=== PATIENT | male | born 1970 | race Caucasian/White ===

== ENCOUNTER 2022-02-28 20:51 | Emergency (ER) | payer MEDICARE, OTHER ==
[~2022-02-28] VITALS: Ht 182.9 cm; Wt 122.5 kg
[2022-02-28 21:26] LABS: APPEARANCE,URINE Clear (CLEAR); BILIRUBIN,URINE Negative (NEGATIVE); COLOR,URINE Yellow (YELLOW); GLUCOSE, URINE (UA) Negative (NEGATIVE); KETONES,URINE Negative (NEGATIVE); LEUKOCYTE ESTERASE ,URINE Small (NEGATIVE); NITRATE,URINE Negative (NEGATIVE); OCCULT BLOOD,URINE Negative (NEGATIVE); PH,URINE 5.5 (5.0-8.0); PROTEIN,URINE Negative (NEGATIVE); UROBILINOGEN,URINE 0.2 mg/dL (0.2-1.0)
[2022-02-28] MEDS ORDERED: ZIPRASIDONE MESYLATE 20 MG/VIAL IM SCH (21:30)
[2022-02-28 21:35] LABS: AMPHET/METH SCREEN,URINE NEGATIVE (NEGATIVE); BARBITURATE SCREEN, URINE NEGATIVE (NEGATIVE); BENZODIAZEPINES SCREEN,URINE NEGATIVE (NEGATIVE); CANNABINOID SCREEN,URINE NEGATIVE (NEGATIVE); COCAINE SCREEN,URINE NEGATIVE (NEGATIVE); OPIATE SCREEN,URINE NEGATIVE (NEGATIVE); PHENCYCLIDINE SCREEN,URINE NEGATIVE (NEGATIVE)
[2022-02-28 21:37] LABS: RBC,URINE 0-1 /HPF (0-1)
[2022-02-28 21:38] LABS: BACTERIA,URINE Rare /HPF (None Seen); SQUAMOUS EPITHELIAL CELL,UR Rare /HPF (0-2)
[2022-02-28] MEDS ORDERED: ZIPRASIDONE MESYLATE 20 MG/VIAL IM ONE (21:46)
[2022-02-28 21:47] LABS: BASOPHILS % (AUTO) 0.6 % (0.0-5.0); EOSINOPHILS % (AUTO) 2.7 % (0.0-8.0); HEMATOCRIT 49.8 % (42-54); LYMPHOCYTES % (AUTO) 33.1 % (21.0-51.0); MEAN CORPUSCULAR HEMOGLOBIN 31.3 pg (27.0-33.0); MEAN CORPUSCULAR HGB CONC 34.1 g/dL (32.0-36.0); MEAN CORPUSCULAR VOLUME 91.7 fL (79-99); NEUTROPHILS % (AUTO) 55.3 % (40.0-77.0); PLATELET COUNT (AUTO) 241 K/uL (130-400); RED BLOOD CELL COUNT(AUTO) 5.43 MIL/uL (4.50-6.20); RED CELL DISTRIBUTION WIDTH 12.4 % (11.0-15.5); WHITE BLOOD COUNT (AUTO) 11.5 K/uL (4.8-10.8)
[2022-02-28 21:58] LABS: CARBON DIOXIDE 23 mmol/L (21-32); CHLORIDE 101 mmol/L (101-111); CREATININE 0.9 mg/dL (0.5-1.5); GLOMERULAR FILTR. RATE CALC 95 mL/min (>60); GLUCOSE,RANDOM 94 mg/dL (70-105); POTASSIUM 3.9 mmol/L (3.5-5.1); SODIUM SERUM 135 mmol/L (136-145); UREA NITROGEN, BLOOD 8 mg/dL (7-18)
[2022-02-28 22:03] LABS: ALANINE AMINOTRANSFERASE 88 U/L (12-78); ALBUMIN 3.7 g/dL (3.5-5.0); ALCOHOL, BLOOD 191 mg/dL (0-10); ASPARTATE AMINOTRANSFERASE 67 U/L (10-37); BILIRUBIN,TOTAL 0.3 mg/dL (0.2-1.0); SALICYLATE 3.9 mg/dL (2.8-20.0); TOTAL PROTEIN, SERUM 7.2 g/dL (6.0-8.3)
[2022-02-28 22:07] LABS: ACETAMINOPHEN < 1 mcg/mL (10-29)
[2022-03-01 05:00] VITALS: BP 156/81
== END 2022-03-01 07:44 | disposition left against medical advice (07) ==
LOC: EDH 20:51
DX: R45.851 Suicidal ideations (principal); F10.129 Alcohol abuse with intoxication, unspecified; F20.9 Schizophrenia, unspecified; F31.9 Bipolar disorder, unspecified; I10 Essential (primary) hypertension; I25.10 Atherosclerotic heart disease of native coronary artery without angina pectoris; Z20.822 Contact with and (suspected) exposure to COVID-19
CPT/HCPCS: 36415 ×2; 80053; 80305; 81001; 85025; 87635; 96372; 99285; C9803; G0481; J3486

== ENCOUNTER 2022-08-24 06:32 | Emergency (ER) | payer MEDICARE, OTHER ==
[~2022-08-24] VITALS: Ht 188 cm; Wt 124.7 kg
[2022-08-24 07:04] LABS: BASOPHILS % (AUTO) 0.3 % (0.0-5.0); EOSINOPHILS % (AUTO) 1.9 % (0.0-8.0); HEMATOCRIT 46.8 % (42-54); LYMPHOCYTES % (AUTO) 20.2 % (21.0-51.0); MEAN CORPUSCULAR VOLUME 91.2 fL (79-99); MONOCYTES % (AUTO) 9.2 % (3.0-13.0); PLATELET COUNT (AUTO) 202 K/uL (130-400); RED BLOOD CELL COUNT(AUTO) 5.13 MIL/uL (4.50-6.20); RED CELL DISTRIBUTION WIDTH 12.6 % (11.0-15.5); WHITE BLOOD COUNT (AUTO) 14.8 K/uL (4.8-10.8)
[2022-08-24 07:20] LABS: ALBUMIN 3.7 g/dL (3.5-5.0); TOTAL PROTEIN, SERUM 7.3 g/dL (6.0-8.3)
[2022-08-24] MEDS ORDERED: IPRATROPIUM/ALBUTEROL SULFATE 3 ML SOLUTION IH STA (07:41)
[2022-08-24] MEDS ORDERED: DEXAMETHASONE SOD PHOSPHATE 4 MG/ML 1ML VIAL IV STA (07:41)
[2022-08-24] MEDS ORDERED: DEXAMETHASONE SOD PHOSPHATE 4 MG/ML 1ML VIAL ONE (07:48)
[2022-08-24] MEDS ORDERED: 0.9%NACL 1000ML 1,000 ML IV ONE (08:00)
[2022-08-24] MEDS ORDERED: AUD IH (08:39)
[2022-08-24] MEDS ORDERED: DOXY100C5 PO (08:39)
[2022-08-24 09:04] VITALS: BP 128/75
== END 2022-08-24 09:05 | disposition home or self-care (01) ==
LOC: EDH 06:32
DX: U07.1 COVID-19 (principal); F31.9 Bipolar disorder, unspecified; F41.9 Anxiety disorder, unspecified; I10 Essential (primary) hypertension; I25.10 Atherosclerotic heart disease of native coronary artery without angina pectoris
CPT/HCPCS: 99284; 96374; 71045; 87635; 96361; 80053; 85025; 87804 ×2; 36415; J1100; C9803; J7030

== ENCOUNTER 2023-02-11 21:52 | Emergency (ER) | payer MEDICARE ==
[~2023-02-11] VITALS: Ht 188 cm; Wt 131.5 kg
[~2023-02-11 21:52] MED LIST: AUD IH; DOXY100C5 PO
[2023-02-11] MEDS ORDERED: ACET-2079 PO (23:25)
[2023-02-11] MEDS ORDERED: AMOX1TAB16 PO (23:25)
[2023-02-11] MEDS ORDERED: KETOROLAC 30MG VIAL (30MG/ML) IM ONE (23:30)
[2023-02-11 23:33] LABS: BASOPHILS % (AUTO) 0.8 % (0.0-5.0); HEMATOCRIT 47.1 % (42-54); LYMPHOCYTES % (AUTO) 41.5 % (21.0-51.0); MEAN CORPUSCULAR HEMOGLOBIN 31.9 pg (27.0-33.0); MEAN CORPUSCULAR HGB CONC 33.8 g/dL (32.0-36.0); MEAN CORPUSCULAR VOLUME 94.6 fL (79-99); MONOCYTES % (AUTO) 9.1 % (3.0-13.0); NEUTROPHILS % (AUTO) 42.4 % (40.0-77.0); PLATELET COUNT (AUTO) 209 K/uL (130-400); RED BLOOD CELL COUNT(AUTO) 4.98 MIL/uL (4.50-6.20); RED CELL DISTRIBUTION WIDTH 12.7 % (11.0-15.5); WHITE BLOOD COUNT (AUTO) 10.3 K/uL (4.8-10.8)
[2023-02-11 23:49] LABS: ALBUMIN 3.5 g/dL (3.5-5.0); TOTAL PROTEIN, SERUM 6.3 g/dL (6.0-8.3)
[2023-02-12] MEDS ORDERED: IOHEXOL-350 50ML VIAL IV ONE (01:04)
[2023-02-12] MEDS ORDERED: CLINDAMYCIN IVPB 900MG/50ML 50 ML IV SCH (03:00)
[2023-02-12] MEDS ORDERED: ZOSYN 3.375GM +NS 50ML IVPB ONE (03:00)
[2023-02-12 03:41] VITALS: BP 125/68
[2023-02-12] MEDS ORDERED: CLIN-141 PO (03:43)
== END 2023-02-12 03:49 | disposition home or self-care (01) ==
LOC: EDH 21:52
DX: J32.4 Chronic pansinusitis (principal); K08.89 Other specified disorders of teeth and supporting structures; Z79.1 Long term (current) use of non-steroidal anti-inflammatories (NSAID)
CPT/HCPCS: 99285; 80053; 85025; 36415; 96372; 96365; 70488; 96368; J1885; J2543; J3490; Q9967

== ENCOUNTER 2024-10-01 22:00 | Emergency (ER) | payer OTHER ==
[~2024-10-01 22:00] MED LIST changes: +ACET-2079 PO; +AMOX1TAB16 PO; +CLIN-141 PO
[2024-10-01 22:09] VITALS: TEMP 98
--- NOTE | 2024-10-01 22:28 | ERN ---
ED Note History of Present Illness Stated Complaint: CHEST PAIN Chief Complaint: Chest Pain Time Seen by MD: 22:14 Dictation: This is a 54-year-old overweight male who was just arrested by police department and then he started complaining of chest pain. He was brought to the ER for further evaluation. He stated that the pain is in the left precordium and radiating to the left side of the neck. He also stated that he has had a heart attack many years ago and he takes metoprolol for that. No history of any stents. He also has a history of hypertension. No history of any diabetes or any other health problems. No syncope diaphoresis palpitations. Temperature 98.1 pulse 98 respirations 20 blood pressure 120/66 with a pulse oximetry of 94%. His chronic medical problems include coronary artery disease, hypertension, COPD details unclear at this time. He also gave a history of AFib in the past and at 1 point was on anticoagulation but does not recall all the details He was seen in the emergency room on 09/24/2024 for hallucinations and after a preliminary workup patient eloped. Allergies: Coded Allergies: No Known Drug Allergies (Unverified Allergy, Unknown, 02/28/22) Home Meds Active Scripts Clindamycin HCl (Clindamycin HCl) 300 Mg Capsule, 1 CAP PO QID for 10 Days, #40 CAP 0 Refills Prov:BECK SAUNDERS MD 02/12/23 Amoxicillin/Potassium Clav (Amox Tr-K Clv 875-125 mg Tab) 1 Each Tablet, 1 EACH PO BID for 10 Days, #20 TAB Prov:OLIVIA ARANAP 02/11/23 Acetaminophen with Codeine (Acetaminophen-Cod #3 Tablet) 1 Each Tablet, 1 TAB PO Q4H PRN for PAIN, #24 TAB Prov:OLIVIA ARANAP 02/11/23 Albuterol Sulfate (Albuterol Sulfate) 2.5 Mg/0.5 Ml Vial.neb, 2.5 MG IH BID for 14 Days, #30 INH Prov:ISAURA HOGAN MD 08/24/22 Doxycycline Hyclate (Doxycycline Hyclate) 100 Mg Capsule, 100 MG PO BID for 7 Days, #14 CAP Prov:ISAURA HOGAN MD 08/24/22 Past Medical History Past Medical History: A-Fib, Anxiety, Hypertension Additional Past Medical Hx: , Surgical History: Cholecystectomy Family History: Negative Social History: Smokers, Drugs (History of cocaine and marijuana), ETOH, Other RN Note Reviewed/Agreed w/PFSH: Yes Review of System Dictation Constitutional: Negative for fever,chills, and weight loss Eyes: Negative for injury, pain,redness, and discharge ENT: Negative for injury,pain or swelling Cardiovascular: Positive for chest pain, denied palpitations, and edema Respiratory: Negative for shortness of breath, cough, and wheezing, Abdomen/GI: Negative for abdominal pain, nausea, vomiting, diarrhea, and constipation Back: Negative for injury and pain : Negative for injury, bleeding and discharge MS/Extremity: Negative for injury and deformity Skin: Negative for rash, and discoloration Neuro: Negative for headache, weakness, numbness, tingling, and seizure Psych: Negative for suicide ideation, homicidal ideation, and hallucinations Initial Vital Sign VS Vital Signs Date Time Temp Pulse Resp B/P (MAP) Pulse Ox O2 Delivery O2 Flow Rate FiO2 10/01/24 22:09 98.1 98 20 120/66 94 Room Air 0 10/01/24 22:33 21 Physical Exam Dictation General: awake, alert, NAD Head/Face: Normocephalic, atraumatic Eyes: PERRL, EOMI, vision at baseline ENT: oral cavity clear, TMs clear, no signs of infection Neck: Trachea midline, supple, no nuchal rigidity Cardiovascular: RRR, normal S1/S2, No MRGs, no JVD Respiratory: CTAB, no respiratory distress, No rales or wheezes Abdomen: Soft, non-tender, non-distended, normal bowel sounds, no guarding or rebound. Skin: Warm, dry, normal turgor, no rash MS/Extremity: Pulses equal, no cyanosis, neurovascular intact, FROM Neuro: COAx4, GCS 15, strength 5/5, CN 2-12 intact, normal cerebellar exam, normal gait, Psych: Normal behavior, mood, and affect normal Extremities-trace edema without any palpable cords, Homans sign is negative Results (Laboratory/Radiology) Laboratory/Radiology Laboratory Tests Test 10/01/24 22:30 10/01/24 22:51 10/01/24 23:15 White Blood Count 9.7 K/uL (4.8-10.8) Red Blood Count 5.47 MIL/uL (4.50-6.20) Hemoglobin 17.4 g/dL (14.0-18.0) Hematocrit 50.6 % (42-54) Mean Corpuscular Volume 92.5 fL (79-99) Mean Corpuscular Hemoglobin 31.8 pg (27.0-33.0) Mean Corpuscular Hemoglobin Concent 34.4 g/dL (32.0-36.0) Red Cell Distribution Width 13.2 % (11.0-15.5) Platelet Count 222 K/uL (130-400) Mean Platelet Volume 10.1 fL (7.5-10.5) Immature Granulocyte % (Auto) 0.2 % (0-1) Neutrophils (%) (Auto) 41.5 % (40.0-77.0) Lymphocytes (%) (Auto) 46.0 % (21.0-51.0) Monocytes (%) (Auto) 6.8 % (3.0-13.0) Eosinophils (%) (Auto) 4.6 % (0.0-8.0) Basophils (%) (Auto) 0.9 % (0.0-5.0) Neutrophils # (Auto) 4.0 K/uL (1.8-7.7) Lymphocytes # (Auto) 4.4 K/uL (1.0-4.8) Monocytes # (Auto) 0.7 K/uL (0.1-1.0) Eosinophils # (Auto) 0.44 K/uL (0.00-0.70) Basophils # (Auto) 0.09 K/uL (0.00-0.20) Absolute Immature Granulocyte (auto 0.02 K/uL (0-1) Nucleated Red Blood Cells 0.0 % (0.0-0.19) Sodium Level 138 mmol/L (136-145) Potassium Level 3.8 mmol/L (3.5-5.1) Chloride Level 103 mmol/L (101-111) Carbon Dioxide Level 27 mmol/L (21-32) Blood Urea Nitrogen 9 mg/dL (7-18) Creatinine 0.9 mg/dL (0.5-1.3) Glomerular Filtration Rate Calc 102 mL/min (>90) Random Glucose 112 mg/dL (70-105) H Total Calcium 8.9 mg/dL (8.5-10.1) Total Creatine Kinase 283 U/L (21-232) H B-Type Natriuretic Peptide < 5 pg/mL (0-100) Troponin I < 0.05 ng/mL (0.00-0.05) Urine Color COLORLESS (YELLOW) Urine Appearance CLEAR (CLEAR) Urine pH 5.0 (5.0-8.0) Urine Specific [place] 1.003 (1.001-1.031) Urine Protein NEGATIVE mg/dL (NEGATIVE) Urine Glucose (UA) NEGATIVE mg/dL (NEGATIVE) Urine Ketones NEGATIVE mg/dL (NEGATIVE) Urine Occult Blood NEGATIVE (NEGATIVE) Urine Nitrate NEGATIVE (NEGATIVE) Urine Bilirubin NEGATIVE mg/dL (NEGATIVE) Urine Urobilinogen 0.2 mg/dL (0.2-1.0) Urine Leukocyte Esterase NEGATIVE [place]/uL Urine Opiates Screen NEGATIVE (NEGATIVE) Urine Barbiturates Screen NEGATIVE (NEGATIVE) Urine Phencyclidine Screen NEGATIVE (NEGATIVE) Urine Amphetamines Screen NEGATIVE (NEGATIVE) Urine Benzodiazepines Screen NEGATIVE (NEGATIVE) Urine Cocaine Screen NEGATIVE (NEGATIVE) Urine Marijuana (THC) Screen NEGATIVE (NEGATIVE) Labs Reviewed?: Yes EKG Comment: Twelve lead EKG done on 10/01/2024 at 10:07 p.m. showed a heart rate of 99, SC interval 160, QRS 116, QT/QTC 361/465 Normal sinus rhythm with nonspecific ST-T changes, borderline intraventricular conduction delay, evidence of lateral infarct in the past. Interpreted by ER MD Dr. Simmons ED Course ED Course Orders Procedure Category Date Status Time B-Type Natriuretic LAB 10/01/24 Complete Peptide 22:04 Chest 1vw RAD 10/01/24 Resulted 22:04 12 Lead Ekg Tracing- EKG 10/01/24 Logged Technical 22:04 Cardiac Monitoring CPOE 10/01/24 Transmitted 22:04 Cbc With Differential LAB 10/01/24 Complete 22:04 Creatine Kinase, Total LAB 10/01/24 Complete 22:04 Urinalysis Profile LAB 10/01/24 Complete 22:04 Troponin Poc Order LAB 10/01/24 Complete Only 22:04 Bedside Troponin-I LAB.ER 10/01/24 Complete (Poc) 22:04 Basic Metabolic Panel LAB 10/01/24 Complete 22:04 Ketorolac PHA 10/01/24 Complete Tromethamine 30mg/Ml 23:00 Pantoprazole 40mg Tab PHA 10/01/24 Complete (Protonix 40mg Tab 23:00 Drug Screen Urine LAB 10/01/24 Complete 23:02 Current Medications Medications (Trade) Dose Ordered Sig/Lilibeth Route PRN Reason Start Time Stop Time Status Last Admin Dose Admin Ketorolac Tromethamine (toRADol) 30 mg ONCE ONCE IM 10/01/24 23:00 10/01/24 23:01 DC 10/01/24 22:55 Pantoprazole Sodium (PROTonix 40MG TAB) 40 mg ONCE ONCE PO 10/01/24 23:00 10/01/24 23:01 DC 10/01/24 22:55 Vital Signs Date Time Temp Pulse Resp B/P (MAP) Pulse Ox O2 Delivery O2 Flow Rate FiO2 10/01/24 22:33 93 18 126/42 96 Room Air* 0 21 10/01/24 22:09 98.1 98 20 120/66 94 Room Air 0 HEART Score Response (Comments) Value History: Low suspicion (0) 0 EKG: Normal 0 Risk Factors: 1-2 risk factors (+1) 1 Initial Troponin: Normal limit (0) 0 HEART Score Risk: Low Risk for MACE (1-3) Total 1 Medical Decision Making MDM MDM: Differential diagnosis: Chest pain-unstable angina, chest wall pain, esophagitis Rationale: Tests considered and ordered secondary to shared decision making include: Previous outside records reviewed: Old ER visits. Risk of complication and/or morbidity or mortality of patient management: None Medications-Per medication reconciliation Need for hospitalization: Patient does not meet criteria for hospitalization. Need for emergency major/minor surgery: No There are no social concerns with this patient. Prescription drug management Prescriptions will include symptomatic care Patient's prior external medical records from other ER visits were reviewed by me as indicated. Prior testing and results from previous visits were reviewed. Prior tests were taken into account with medical decision making and resource utilization, independent historian/historians were used to obtain complete medical history. I independently interpreted the test that were performed, results were reviewed by me and considered findings on radiology if ordered. Medical management and examination interpretation discussions were had by me with other qualified healthcare professionals as indicated for the patient's care. Problem List Problem List: (1) Anterior chest wall pain (2) Polysubstance abuse (3) Gastroesophageal reflux disease DX & DISP Disposition: Discharge Departure Impression: Primary Impression: Anterior chest wall pain Additional Impressions: Gastroesophageal reflux disease, Polysubstance abuse Condition: Stable Additional Instructions: Patient and the caregiver have been informed of all the diagnostic tests and the imaging conducted during the today's visit to the emergency room and has verbalized understanding of the results I have personally reviewed and interpr eted all diagnostic exams performed here in the ER today as well as the vital signs documented by the nursing staff. The patient is now being discharged to home and should follow up with the primary care physician or the specialist as directed by the ER staff. Follow-up with primary care provider in 1 to 2 days. Take medications as directed here in the emergency room. Okay to continue home medications unless otherwise discussed during your visit in the emergency room today. Return to your nearest emergency room if symptoms worsen or if there is no improvement. Call 911 if you need immediate assistance. Take Tylenol or Motrin [id number] as needed and if no contraindications are present. Increase oral hydration. A wound culture or urine culture was ordered here in the emergency room department please follow-up with primary care provider and advise them to get repeat ports from our facility. If you had any Erik wrap/splints that were applied here, please do not remove them until you see your primary care or specialty. Patient has received medical clearance and is currently stable We will continue to monitor and provide treatment as needed until they are discharged to law enforcement custody Condition stable Course progressing as expected Pain status none Assessment exam unchanged Referrals: GIFTY JUAN (PCP) SMITH SIMMONS MD Oct 01, 2024 22:28
[2024-10-01 22:33] VITALS: BP 126/42; PULSE 93; RESP 18; O2SAT 96
[2024-10-01 22:48] LABS: BASOPHILS # (AUTO) 0.09 K/uL (0.00-0.20); BASOPHILS % (AUTO) 0.9 % (0.0-5.0); EOSINOPHILS # (AUTO) 0.44 K/uL (0.00-0.70); EOSINOPHILS % (AUTO) 4.6 % (0.0-8.0); HEMATOCRIT 50.6 % (42-54); IMMATURE GRANULOCYTE ABSOLUTE 0.02 K/uL (0-1); LYMPHOCYTES # (AUTO) 4.4 K/uL (1.0-4.8); MEAN CORPUSCULAR HEMOGLOBIN 31.8 pg (27.0-33.0); MEAN CORPUSCULAR HGB CONC 34.4 g/dL (32.0-36.0); MEAN CORPUSCULAR VOLUME 92.5 fL (79-99); MONOCYTES # (AUTO) 0.7 K/uL (0.1-1.0); MONOCYTES % (AUTO) 6.8 % (3.0-13.0); NEUTROPHILS % (AUTO) 41.5 % (40.0-77.0); PLATELET COUNT (AUTO) 222 K/uL (130-400); RED BLOOD CELL COUNT(AUTO) 5.47 MIL/uL (4.50-6.20); RED CELL DISTRIBUTION WIDTH 13.2 % (11.0-15.5); WHITE BLOOD COUNT (AUTO) 9.7 K/uL (4.8-10.8)
[2024-10-01] MEDS: ketOROlac 30MG VIAL (30MG/ML) IM ONE (22:55)
[2024-10-01] MEDS: PANTOPrazole 40 MG TAB DR PO ONE (22:55)
[2024-10-01 22:56] LABS: CREATININE 0.9 mg/dL (0.5-1.3); POTASSIUM 3.8 mmol/L (3.5-5.1)
--- NOTE | 2024-10-01 23:08 | HMCIMG ---
CHEST 1VW HISTORY: Chest pain COMPARISON: 09/24/2024 FINDINGS: A frontal projection of the chest was obtained. Mild bilateral pulmonary infiltrates are seen may be related to mild pulmonary vascular congestion with possible superimposed pneumonitis. The heart is borderline enlarged. Degenerative changes are seen. No evidence of aortic calcification is seen. IMPRESSION: 1. Mild bilateral pulmonary infiltrates are seen may be related to mild pulmonary vascular congestion with possible superimposed pneumonitis.
[2024-10-01 23:24] LABS: B-TYPE NATRIURETIC PEPTIDE < 5 pg/mL (0-100)
[2024-10-01 23:29] LABS: APPEARANCE,URINE CLEAR (CLEAR); BILIRUBIN,URINE NEGATIVE (NEGATIVE); COLOR,URINE COLORLESS (YELLOW); GLUCOSE, URINE (UA) NEGATIVE (NEGATIVE); KETONES,URINE NEGATIVE (NEGATIVE); LEUKOCYTE ESTERASE ,URINE NEGATIVE Leu/uL (NEGATIVE); NITRATE,URINE NEGATIVE (NEGATIVE); OCCULT BLOOD,URINE NEGATIVE (NEGATIVE); PROTEIN,URINE NEGATIVE (NEGATIVE); UROBILINOGEN,URINE 0.2 mg/dL (0.2-1.0)
[2024-10-01 23:37] LABS: AMPHET/METH SCREEN,URINE NEGATIVE (NEGATIVE); BARBITURATE SCREEN, URINE NEGATIVE (NEGATIVE); BENZODIAZEPINES SCREEN,URINE NEGATIVE (NEGATIVE); CANNABINOID SCREEN,URINE NEGATIVE (NEGATIVE); COCAINE SCREEN,URINE NEGATIVE (NEGATIVE); OPIATE SCREEN,URINE NEGATIVE (NEGATIVE); PHENCYCLIDINE SCREEN,URINE NEGATIVE (NEGATIVE)
[2024-10-01 23:39] LABS: ADD UA MICROSCOPIC NO
--- NOTE | 2024-10-02 06:20 | EKG ---
[facility] Test Date: 2024-10-01 Test Time: 22:07:48 Pat Name: MARYAN ONOFRE Department: ED Room: Gender: M Educator Senior Clinical: 1088 : 1970 Requested By: SMITH MARIANO Order Number: [id number] Reading MD: Renetta Mims Measurements Intervals [place] Rate: 99 P: 32 MD: 160 QRS: -33 QRSD: 116 T: 19 QT: 361 QTc: 465 Interpretive Statements Sinus rhythm Nonspecific intraventricular conduction delay Lateral infarct, age indeterminate Compared to ECG 09/24/2024 08:59:36 Intraventricular conduction delay now present Myocardial infarct finding now present Electronically Signed On 10-02-2024 09:24:33 COMMUNICATIONS ASSOCIATE by Renetta Mims Please click the below link to view image of tracing.
== END 2024-10-02 00:20 | disposition home or self-care (01) ==
LOC: EEVIPCON 22:00 → EDH 22:00
DX: R07.89 Other chest pain (principal); K21.9 Gastro-esophageal reflux disease without esophagitis; F19.10 Other psychoactive substance abuse, uncomplicated; I10 Essential (primary) hypertension; I25.2 Old myocardial infarction; I25.10 Atherosclerotic heart disease of native coronary artery without angina pectoris; J44.9 Chronic obstructive pulmonary disease, unspecified; I48.91 Unspecified atrial fibrillation; F41.9 Anxiety disorder, unspecified; F17.200 Nicotine dependence, unspecified, uncomplicated; Z90.49 Acquired absence of other specified parts of digestive tract
CPT/HCPCS: 99284; 71045; 81003; 82550; 84484; 80048; 83880; 80305; 85025; 36415; 96372; 93005; J1885